=== PATIENT | female | born 1980 | race Caucasian/White ===

== ENCOUNTER 2021-07-10 23:24 | Emergency (ER) | payer OTHER ==
[2021-07-11] MEDS ORDERED: IBUPROFEN800 MG PO (01:28)
== END 2021-07-11 01:32 | disposition home or self-care (01) ==
LOC: FER 23:24
DX: S67.193A Crushing injury of left middle finger, initial encounter (principal); H91.92 Unspecified hearing loss, left ear; F17.200 Nicotine dependence, unspecified, uncomplicated; W23.0XXA Caught, crushed, jammed, or pinched between moving objects, initial encounter; Y93.89 Activity, other specified; Y92.89 Other specified places as the place of occurrence of the external cause; Y99.0 Civilian activity done for income or pay
CPT/HCPCS: 73140